=== PATIENT | female | born 1985 | race American Indian/Alaskan Native ===

== ENCOUNTER 2016-12-07 15:28 | Emergency (ER) | payer MEDICAID ==
--- NOTE | 2016-12-07 20:32 | Emergency Department Report ---
ED Laceration HPI - HPI Chief Complaint: Laceration/Recheck/Suture Stated Complaint: RT FINGER LAC Time Seen by Provider: 12/07/16 20:17 Location: Upper Extremity (right hand second and third knuckle) Severity: severe Tetanus Status: Up to Date Laceration Symptoms: Yes Weakness, Yes Pain (second knuckle her right hand), No Foreign Body Sensation, No Numbness Other History: Patient here reports that she was cooking and cut herself with a knife to her second and third knuckle on her right hand. She is reporting pain 10 out of 10. She said she had a tetanus shot 4 years ago. Denies any numbness or tingling. She said air was bleeding but she put dressing on and it stopped bleeding now. She did not take any pain medication prior to coming to the emergency room. She said this happened around 1 PM today. ED Review of Systems ROS: Stated complaint: RT FINGER LAC Other details as noted in HPI Comment: All other systems reviewed and negative Constitutional: denies: chills, fever Respiratory: no symptoms reported Cardiovascular: denies: chest pain, palpitations, edema, syncope Gastrointestinal: denies: nausea, vomiting Musculoskeletal: arthralgia Skin: other (at second and third finger) Neurological: denies: weakness, numbness, paresthesias ED Past Medical Hx - Past Medical History Previous Medical History?: Yes Additional medical history: Bursitis - Surgical History Past Surgical History?: No - Family History Family history: hypertension - Social History Smoking Status: Never Smoker Substance Use Type: None - Medications Home Medications: Home Medications Medication Instructions Recorded Confirmed Last Taken Type Tizanidine HCl [Zanaflex] 4 mg PO TID PRN #15 tablet 06/11/16 Unknown Rx Acetaminophen/Codeine [Tylenol #3] 1 tab PO Q6H PRN #9 tab 12/07/16 Unknown Rx Cephalexin [Keflex] 500 mg PO Q8HR #15 cap 12/07/16 Unknown Rx Ibuprofen [Motrin 800 MG tab] 800 mg PO Q8HR PRN #15 tablet 12/07/16 Unknown Rx Laceration Physical Exam - Exam General: Vital signs noted. No distress. Alert and acting appropriately. This is a 30-year-old female well-nourished well-developed in no acute distress Lungs: There are to auscultate bilaterally, no rhonchi wheezes or rales Cardiovascular: S1, S2. Tachycardic at 110. EXT:No C/C/E + 2 pulses. No neurovascular compromise.Cap refill <3sec MSK: Full ROM to all ext including fingers. +5/5 mvmt. Laceration Location: Upper Extremity (right third M IP joints with abrasion. Right second MIP joint with superficial laceration. Linear without bleeding. No erythema noted.) Laceration Exam: Yes Normal Distal CMS, No Foreign Body, No Exposed Tendon, Vessel, or Nerve, No Tendon Injury ED Course Vital Signs 12/07/16 16:33 Temperature 99.0 F Pulse Rate 110 H Respiratory 20 Rate Blood Pressure 145/102 O2 Sat by Pulse 100 Oximetry Vital Signs 12/07/16 12/07/16 16:33 20:00 Temperature 99.0 F 98.2 F Pulse Rate 110 H 92 H Respiratory 20 18 Rate Blood Pressure 145/102 Blood Pressure 125/88 [Left] O2 Sat by Pulse 100 95 Oximetry - Reevaluation(s) Reevaluation #1: 12/07/16 20:53 See procedure note for details on laceration repair. she had [place] 5/325 mg 2 tablets in emergency room. - Laceration /Wound Repair Right Medial Dorsal Finger Wound Location: upper extremity (right second finger at MIP joint) Wound Length (cm): 1 (0.5 cm) Wound's Depth, Shape: superficial, linear Wound Explored: clean Irrigated w/ Saline (ccs): 100 Betadine Prep?: Yes Volume Anesthetic (ccs): 0 Wound Debrided: moderate Wound Repaired With: Dermabond (medical splint placed the finger for immobilization) Sterile Dressing Applied?: Yes (metal finger splint for immobilization) ED Medical Decision Making - Medical Decision Making ED course: He procedure note for laceration repair. Patient status post knife injury with superficial laceration to right hand at the second finger MIP joint and superficial abrasion to right third anger at MIP joint. Abrasion cleansed with normal saline and Neosporin ointment placed the site. Patient says she received her tetanus shot 4 years ago when she had cut to her face. Patient given [place] 5/325 2 tablets in emergency room for pain to laceration site. Patient discharged home with prescription for Tylenol 3 and Keflex. I instructed her to keep dressing on for 24 hours and to keep the finger splint on for immobilization for the next 24 hours. She voices understanding of discharge instruction. Critical care attestation.: If time is entered above; I have spent that time in minutes in the direct care of this critically ill patient, excluding procedure time. ED Disposition Clinical Impression: Arthralgia of right hand Laceration of finger without complication Qualifiers: Encounter type: initial encounter Qualified Code(s): S61.219A - Laceration without foreign body of unspecified finger without damage to nail, initial encounter Abrasion of finger of right hand Qualifiers: Encounter type: initial encounter Qualified Code(s): S60.419A - Abrasion of unspecified finger, initial encounter Disposition: DISCHARGED TO HOME OR SELFCARE Is pt being admited?: No Does the pt Need Aspirin: No Condition: Stable Instructions: Finger Laceration (ED), Skin Adhesive Care (ED), Arthralgia (ED) Additional Instructions: Please keep metal finger splint on for 24 hours keep dressing on fingers for 24 hours. Keep affected area clean and dry Please do not drive or operate heavy machinery while on Tylenol 3 as this will cause drowsiness Take antibiotic as prescribed Prescriptions: Acetaminophen/Codeine [Tylenol #3] 1 tab PO Q6H PRN #9 tab PRN Reason: Pain Cephalexin [Keflex] 500 mg PO Q8HR #15 cap Ibuprofen [Motrin 800 MG tab] 800 mg PO Q8HR PRN #15 tablet PRN Reason: Pain Referrals: PRIMARY CARE,MD [Primary Care Provider] - 3-5 Days [facility] [Outside] - 3-5 Days Forms: Work/School Release Form(ED)
[2016-12-07] MEDS ORDERED: NORCO 5/325 PO ONE (20:33)
[2016-12-07 21:04] VITALS: BP 125/88
== END 2016-12-07 21:21 | disposition home or self-care (01) ==
LOC: ED 15:28
DX: S61.210A Laceration without foreign body of right index finger without damage to nail, initial encounter (principal); S60.419A Abrasion of unspecified finger, initial encounter; M79.641 Pain in right hand; W25.XXXA Contact with sharp glass, initial encounter; Y93.9 Activity, unspecified; Y92.9 Unspecified place or not applicable; Y99.9 Unspecified external cause status
CPT/HCPCS: 99282